=== PATIENT | female | born 2005 | race Caucasian/White ===

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

== ENCOUNTER 2023-01-04 14:59 | Outpatient (REF) | payer MEDICAID, SELFPAY | END 2023-01-04 15:00 | disposition home or self-care (01) | LOC: LBN 14:59 | PROVIDERS: PCP Family Medicine; Visit Provider Nurse Practitioner Women's Health | DX: N76.0 Acute vaginitis (principal) | CPT/HCPCS: 87480; 87510; 87660 ==